=== PATIENT | female | born 1985 | race Two or more races ===

== ENCOUNTER 2016-06-26 21:00 | Emergency (ER) | payer SELFPAY ==
[~2016-06-26] VITALS: Ht 162.6 cm; Wt 90.7 kg
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
--- NOTE | 2016-06-26 21:27 | NUR ---
lapd at bedside.
--- NOTE | 2016-06-26 21:39 | NUR ---
Patient discharged to home in stable condition. Written and verbal after care instructions given. Patient verbalizes understanding of instruction. Patient is ambulatory with steady gait, accompanied by family.
[2016-06-26 21:46] VITALS: BP 139/80
== END 2016-06-26 21:35 | disposition home or self-care (01) ==
LOC: ER 21:01
DX: S30.811A Abrasion of abdominal wall, initial encounter (principal); V43.52XA Car driver injured in collision with other type car in traffic accident, initial encounter; Y93.89 Activity, other specified; Y92.89 Other specified places as the place of occurrence of the external cause; Y99.8 Other external cause status
CPT/HCPCS: A4606; Z7610